=== PATIENT | male | born 1970 | race Caucasian/White ===

== ENCOUNTER 2018-04-14 18:59 | Emergency (ER) | payer OTHER ==
[2018-04-14 19:11] VITALS: BP 169/112; PULSE 78; O2SAT 97
--- NOTE | 2018-04-14 19:38 | ERPHSYRPT ---
- History of Present Illness Time Seen by Provider: 04/14/18 19:27 Source: patient Exam Limitations: no limitations Patient Subjective Stated Complaint: shoulder has hurt for past year, today at work he moved a tire and felt it pop and it has hurt ever since and isn't able to move it very well Triage Nursing Assessment: Pt stated that his shoulder has hurt for past year, today at work he moved a tire and felt it pop and it has hurt ever since and isn 't able to move it very well, denies numbness or tingling in fingers, denies any other injuries, appears to be uncomfortable Physician History: The patient is a 47-year-old male complaining of worsening right shoulder pain. His right shoulder has been hurting since last year but today while lifting a tire at work, he felt a pop and a crunching noise in his right shoulder. Now it is very painful for him to move his arm at the shoulder joint. He is unable to bring his arm straight out to his side or raise in the air without excruciating pain. His past medical history is significant for hypertension, GERD, diabetes, and depression. Occurred: this afternoon Method of Injury: other (lifting) Quality: burning, sharpness, stabbing Severity of Pain-Max: severe Severity of Pain-Current: severe Extremities Pain Location: shoulder: right Modifying Factors: Improves With: nothing Associated Symptoms: none Allergies/Adverse Reactions: codeine Allergy (Verified 04/14/18 19:11) diphenhydramine HCl [From Benadryl] Allergy (Verified 04/14/18 19:11) Home Medications: Omeprazole 40 mg DAILY 01/02/15 [History] Paroxetine HCl 30 mg DAILY 01/02/15 [History] Benazepril/Hydrochlorothiazide [Lotensin Hct 20-12.5 Tablet] 1 each PO DAILY [History] Metformin HCl 500 mg [Glucophage 500 MG] 500 mg PO BID 04/14/18 [History] Verapamil HCl Sr 240 mg [Isoptin S.r. 240 mg] 240 mg PO DAILY 04/14/18 [ History] Hx Influenza Vaccination/Date Given: No Hx Pneumococcal Vaccination/Date Given: No - Review of Systems Constitutional: No Fever, No Chills Eyes: No Symptoms Ears, Nose, & Throat: No Symptoms Respiratory: No Cough, No Dyspnea Cardiac: No Chest Pain, No Edema, No Syncope Abdominal/Gastrointestinal: No Abdominal Pain, No Nausea, No Vomiting, No Diarrhea Genitourinary Symptoms: No Dysuria Musculoskeletal: Injury, Joint Pain Skin: No Rash Neurological: No Dizziness, No Focal Weakness, No Sensory Changes Psychological: No Symptoms Endocrine: No Symptoms Hematologic/Lymphatic: No Symptoms Immunological/Allergic: No Symptoms All Other Systems: Reviewed and Negative - Past Medical History Pertinent Past Medical History: Yes Cardiac History: Hypertension, Other Respiratory History: Sleep Apnea Endocrine Medical History: Diabetes Type II GI Medical History: GERD Psycho-Social History: Depression Other Medical History: MITRAL VALVE PROLAPSE - Past Surgical History Past Surgical History: Yes Musculoskeletal: Orthopedic Surgery Other Surgical History: R WRIST, SINUS - Social History Smoking Status: Never smoker Exposure to second hand smoke: No Drug Use: none Patient Lives Alone: No - Nursing Vital Signs Nursing Vital Signs: Initial Vital Signs Temperature 98.8 F 04/14/18 19:04 Pulse Rate 78 04/14/18 19:04 Blood Pressure 169/112 04/14/18 19:04 O2 Sat by Pulse Oximetry 97 04/14/18 19:04 Pain Scale Pain Intensity 6 - Physical Exam General Appearance: alert Eyes, Ears, Nose, Throat Exam: moist mucous membranes Neck Exam: non-tender, supple Cardiovascular/Respiratory Exam: chest non-tender, normal breath sounds, regular rate/rhythm, no respiratory distress Abdominal Exam: non-tender, No guarding Back Exam: normal inspection, No vertebral tenderness Shoulder Exam: limited ROM (right shoulder pain with movement), No soft tissue tenderness Elbow/Forearm Exam: normal inspection Wrist Exam: normal inspection Hand Exam: normal inspection Neuro/Tendon Exam: normal sensation, normal motor functions Mental Status Exam: alert, oriented x 3, cooperative Skin Exam: normal color, warm, dry SpO2 Interpretation: normal SpO2: 97 Oxygen Delivery: Room Air - Radiology Exams Right Shoulder X-ray Interpretation: Interpreted by me, Negative, No Fracture, No Subluxation Ordered Tests: Active Orders 24 hr Category Date Time Status SHOULDER Stat Exams 04/14/18 19:45 Ordered Medication Summary Discontinued Medications Generic Name Dose Route Start Last Admin Trade Name Freq PRN Reason Stop Dose Admin Ketorolac Tromethamine 60 mg 04/14/18 19:39 04/14/18 19:45 Toradol 30 Mg Injection IM 04/14/18 19:40 60 mg STAT ONE Administration Ketorolac Tromethamine Confirm 04/14/18 19:42 Toradol 30 Mg Injection Administered 04/14/18 19:43 Dose 60 mg .ROUTE .STK-MED ONE - Progress Progress: improved Counseled pt/family regarding: diagnosis, need for follow-up, rad results - Departure Time of Disposition: 20:07 Departure Disposition: Home Clinical Impression: Right shoulder strain Condition: Stable Critical Care Time: No Referrals: FRANDY DUMONT [Primary Care Provider] - Additional Instructions: You have injured the soft tissues of your right shoulder. You were given Toradol 60 mg IM in the ER. Take naproxen 500 mg 2 times a day as needed. Apply ice to your shoulder for 10-15 minutes 3 or 4 times a day. You were given a work excuse for 2 days. Follow-up with your primary medical doctor in 2 -3 days. Prescriptions: Naproxen 500 mg PO BID PRN #30 tablet.
[2018-04-14] MEDS ORDERED: TORAdol 30 mg Injection IM ONE (19:39)
[2018-04-14] MEDS ORDERED: TORAdol 30 mg Injection ONE (19:42)
--- NOTE | 2018-04-15 08:57 | XRAY ---
Indication: Pain and limited range of motion. Comparison: None 3 views of the right shoulder demonstrates mild AC degenerative arthropathy. No other bony, articular, or soft tissue abnormalities.
== END 2018-04-14 20:26 | disposition home or self-care (01) ==
LOC: ED 18:59
DX: S46.911A Strain of unspecified muscle, fascia and tendon at shoulder and upper arm level, right arm, initial encounter (principal); M25.511 Pain in right shoulder; Z79.899 Other long term (current) drug therapy; X50.0XXA Overexertion from strenuous movement or load, initial encounter; Y93.89 Activity, other specified; Y92.89 Other specified places as the place of occurrence of the external cause; Y99.0 Civilian activity done for income or pay
CPT/HCPCS: 73030; 96372; 99284; J1885

== ENCOUNTER 2018-06-29 03:30 | Emergency (ER) | payer OTHER ==
[2018-06-29] MEDS ORDERED: BABY ASPIRIN 81 MG CHEW PO ONE (03:41)
[2018-06-29] MEDS ORDERED: Nitrostat 0.4 MG (ED) SL ONE (03:41)
[2018-06-29] MEDS ORDERED: Sodium Chloride 0.9% 1000 ML 1,000 ML IV SCH (03:45)
--- NOTE | 2018-06-29 03:49 | ERPHSYRPT ---
- History of Present Illness Time Seen by Provider: 06/29/18 03:38 Historian: patient, family Exam Limitations: no limitations Physician History: 47 year old male awakened with CP tonight - had neg w/u with diag MVP 8 years ago but this is different pain now has EKG st elevation inf leads - calling regional alert for potential stemi Timing/Duration: today Activities at Onset: sleep Quality: fullness, pressure Location: substernal Chest Pain Radiation: back Severity of Pain-Max: moderate Severity of Pain-Current: moderate Modifying Factors: Improves With: nitroglycerin Associated Symptoms: back pain Prior Chest Pain/Cardiac Workup: stress test Nitro Today/Relief: 0.4 mg x 1, provided by ED, mild relief Aspirin Treatment Today: 81 mg x 4, provided by ED Allergies/Adverse Reactions: codeine Allergy (Verified 04/14/18 19:11) diphenhydramine HCl [From Benadryl] Allergy (Verified 04/14/18 19:11) Home Medications: Omeprazole 40 mg DAILY 01/02/15 [History] Paroxetine HCl 30 mg DAILY 01/02/15 [History] Benazepril/Hydrochlorothiazide [Lotensin Hct 20-12.5 Tablet] 1 each PO DAILY [History] Metformin HCl 500 mg [Glucophage 500 MG] 500 mg PO BID 04/14/18 [History] Verapamil HCl Sr 240 mg [Isoptin S.r. 240 mg] 240 mg PO DAILY 04/14/18 [ History] Hx Influenza Vaccination/Date Given: No Hx Pneumococcal Vaccination/Date Given: No - Past Medical History Pertinent Past Medical History: Yes Cardiac History: Hypertension, Other Respiratory History: Sleep Apnea Endocrine Medical History: Diabetes Type II GI Medical History: GERD Psycho-Social History: Depression Other Medical History: MITRAL VALVE PROLAPSE - Past Surgical History Past Surgical History: Yes Musculoskeletal: Orthopedic Surgery Other Surgical History: R WRIST, SINUS - Social History Smoking Status: Never smoker Exposure to second hand smoke: No Drug Use: none Patient Lives Alone: No - Nursing Vital Signs Nursing Vital Signs: Initial Vital Signs Temperature 98.8 F 06/29/18 03:34 Pulse Rate 68 06/29/18 03:34 Respiratory Rate 18 06/29/18 03:34 Blood Pressure 135/93 06/29/18 03:34 O2 Sat by Pulse Oximetry 96 06/29/18 03:34 Pain Scale Pain Intensity 8 - Physical Exam General Appearance: no apparent distress, alert Eye Exam: PERRL/EOMI, eyes nml inspection Ears, Nose, Throat Exam: normal ENT inspection, moist mucous membranes Neck Exam: normal inspection, non-tender, supple, full range of motion Respiratory Exam: normal breath sounds, lungs clear, No respiratory distress Cardiovascular Exam: regular rate/rhythm, normal heart sounds Gastrointestinal/Abdomen Exam: soft, No tenderness, No mass Back Exam: normal inspection, No CVA tenderness, No vertebral tenderness Extremity Exam: normal inspection, normal range of motion Neurologic Exam: alert, oriented x 3, cooperative, normal mood/affect, sensation nml, No motor deficits Skin Exam: normal color, warm, dry - Course Nursing assessment & vital signs reviewed: Yes EKG Interpreted by Me: Sinus Rhythm, NORMAL AXIS, ST Elev, Ischemic ST-T changes - Radiology Exams Chest X-ray Interpretation: Reviewed by me, No Infiltrates Ordered Tests: Active Orders 24 hr Category Date Time Status Sorter Laundry Articles STAT Care 06/29/18 03:42 Ordered EKG-ER Only STAT Care 06/29/18 03:41 Ordered Pulse Oximetry (ED) STAT Care 06/29/18 03:41 Ordered CHEST 1 VIEW (PORTABLE) Stat Exams 06/29/18 03:42 Ordered AMYLASE Stat Lab 06/29/18 03:41 Ordered CBC W DIFF Stat Lab 06/29/18 03:41 Ordered CK-Creatinine Phosphokinase Stat Lab 06/29/18 03:41 Ordered CMP Stat Lab 06/29/18 03:41 Ordered LIPASE Stat Lab 06/29/18 03:41 Ordered NT PRO BNP Stat Lab 06/29/18 03:41 Ordered TROPONIN Q3H Lab 06/29/18 03:45 Ordered TROPONIN Q3H Lab 06/29/18 06:45 Ordered TROPONIN Q3H Lab 06/29/18 09:45 Ordered TROPONIN Q3H Lab 06/29/18 12:45 Ordered TROPONIN Q3H Lab 06/29/18 15:45 Ordered Medication Summary Generic Name Dose Route Start Last Admin Trade Name Freq PRN Reason Stop Dose Admin Sodium Chloride 1,000 mls @ 50 mls/hr 06/29/18 03:45 Sodium Chloride 0.9% 1000 Ml IV 07/29/18 03:44 .Q20H MARTIN Discontinued Medications Generic Name Dose Route Start Last Admin Trade Name Freq PRN Reason Stop Dose Admin Aspirin 324 mg 06/29/18 03:41 Baby Aspirin 81 Mg Chew PO 06/29/18 03:42 STAT ONE Nitroglycerin 0.4 mg 06/29/18 03:41 Nitrostat 0.4 Mg (Ed) SL 06/29/18 03:42 STAT ONE Prasugrel Confirm 06/29/18 03:57 Effient 10 Mg Tablet Administered 06/29/18 03:58 Dose 60 mg .ROUTE .STK-MED ONE - Progress Progress: improved, re-examined Air Movement: good Progress Note: 06/29/18 03:53 discussed with Flavia Faria [facility] ER physician and pt and all agree for transfer to [facility] Blood Culture(s) Obtained: No Antibiotics given: No Discussed with : Other ( ER ) Will see patient in: ED Counseled pt/family regarding: lab results, diagnosis, need for follow-up, rad results - Departure Time of Disposition: 04:02 Departure Disposition: Transfer Clinical Impression: STEMI (ST elevation myocardial infarction) Condition: Good Critical Care Time: Yes Critical Care Time(excluding separately billable procedures): 30-74 minutes ( stemi protocol) Referrals: FRANDY DUMONT [Primary Care Provider] -
[2018-06-29 03:55] VITALS: PULSE 68
[2018-06-29] MEDS ORDERED: Effient 10 MG TABLET ONE (03:57)
[2018-06-29 04:15] VITALS: O2SAT 98
[2018-06-29 04:18] LABS: BASOPHIL % 0.2 % (0.0-0.4); Basophil (Absolute #) 0.04 (0-0.4); Eosinophil % 0.4 % (0.00-5.0); Eosinophil (Absolute #) 0.06 (0-0.5); Granulocyte Absolute (ANC) 12.54 (1.4-6.9); Granulocytes % 74.3 % (36.0-66.0); Hematocrit 40.5 % (42-50); Hemoglobin 13.3 gm/dl (12.5-18.0); Lymphocyte (Absolute #) 1.71 (1.0-4.6); Lymphocytes % 10.1 % (24.0-44.0); Mean Corpuscular Hemoglobin 30.2 pg (26-32); Mean Corpuscular Hgb Concent. 32.8 g/dl (32-36); Mean Platelet Volume 9.1 fl (6-9.5); Monocyte (Absolute #) 2.53 (0.0-1.3); Platelet Count 276 K/mm3 (150-450); Red Cell Distribution Width 13.1 % (11.5-14.0); White Blood Count 16.9 K/mm3 (4.0-10.5)
[2018-06-29 04:27] VITALS: BP 124/82
[2018-06-29 04:55] LABS: ALBUMIN 3.8 g/dL (3.5-5.0); ALKALINE PHOSPHATASE 104 U/L (38-126); AMYLASE 33 U/L (30-110); ANION GAP 14.9 MEQ/L (5-15); BLOOD UREA NITROGEN 19 mg/dL (9-20); CHLORIDE 94 mmol/L (98-107); CK-Creatinine Phosphokinase 153 U/L (55-170); Calcium 9.1 mg/dL (8.4-10.2); Carbon Dioxide 28 mmol/L (22-30); Creatinine 1 0.95 mg/dL (0.66-1.25); Glucose 210 mg/dL (74-106); LIPASE 59 U/L (23-300); NT PRO BNP 62.3 pg/mL (0-450); SGOT/AST 23 U/L (17-59); SGPT/ALT 17 U/L (0-50); SODIUM 133 mmol/L (137-145); Total Protein 6.9 g/dL (6.3-8.2)
--- NOTE | 2018-06-29 08:26 | XRAY ---
Indication: Short of breath. Comparison: None Portable apical lordotic chest underinflated and clear. Heart and mediastinal structures within normal limits for AP portable technique. Bony thorax intact with mild degenerative changes. Impression: Nonacute underinflated chest.
[2018-06-29 09:39] LABS: Slide Review 1 YES
== END 2018-06-29 04:07 | disposition short-term general hospital (02) ==
LOC: ED 03:30
DX: I21.3 ST elevation (STEMI) myocardial infarction of unspecified site (principal); Z79.899 Other long term (current) drug therapy; E11.9 Type 2 diabetes mellitus without complications; Z79.84 Long term (current) use of oral hypoglycemic drugs
CPT/HCPCS: 36415; 71045; 80053; 82150; 82550; 83690; 83880; 84484; 85025; 93005; 93041; 99284; 99291; A9270-GY

== ENCOUNTER 2019-03-24 10:12 | Emergency (ER) | payer OTHER ==
--- NOTE | 2019-03-24 10:27 | ERPHSYRPT ---
- History of Present Illness Time Seen by Provider: 03/24/19 10:23 Source: patient Exam Limitations: no limitations Patient Subjective Stated Complaint: right wrist and hand injury from a fall at 0700 today states fell approx 4 feet off steps Triage Nursing Assessment: to er c /o right wrist and hand injury from a fall pt has swelling and bruising noted to hand and slight deformity to wrist pt able to move all digits good cap refill to all digits. denies any numbness or tingling Physician History: At work fell onto R hand with hand in flexion - began swelling immediately - sent to ER Occurred: just prior to arrival Method of Injury: fell Quality: constant, aching Severity of Pain-Max: moderate Severity of Pain-Current: moderate Extremities Pain Location: wrist: right, hand: right Modifying Factors: Improves With: nothing Associated Symptoms: none Allergies/Adverse Reactions: codeine Allergy (Verified 03/24/19 10:24) diphenhydramine HCl [From Benadryl] Allergy (Verified 03/24/19 10:24) Home Medications: Omeprazole 40 mg DAILY 01/02/15 [History] Metformin HCl 500 mg [Glucophage 500 MG] 500 mg PO BID 04/14/18 [History] Allopurinol 300 mg [Zyloprim 300 mg] 300 mg PO DAILY 03/24/19 [History] Lisinopril [Zestril] 30 mg PO DAILY 03/24/19 [History] Venlafaxine HCl [Venlafaxine HCl ER] 225 mg PO DAILY 03/24/19 [History] hydroCHLOROthiazide [Hydrochlorothiazide] 12.5 mg PO DAILY 03/24/19 [History] Hx Tetanus, Diphtheria Vaccination/Date Given: Yes (2016) Hx Influenza Vaccination/Date Given: No Hx Pneumococcal Vaccination/Date Given: No - Review of Systems Constitutional: No Symptoms Respiratory: No Symptoms Cardiac: No Symptoms Abdominal/Gastrointestinal: No Symptoms Musculoskeletal: Fall (Right hand dorsal edema/developing ecchymosis) Neurological: No Symptoms All Other Systems: Reviewed and Negative - Past Medical History Pertinent Past Medical History: Yes Cardiac History: Hypertension, Other Respiratory History: Sleep Apnea Endocrine Medical History: Diabetes Type II GI Medical History: GERD Psycho-Social History: Depression Other Medical History: MITRAL VALVE PROLAPSE - Past Surgical History Past Surgical History: Yes Musculoskeletal: Orthopedic Surgery Other Surgical History: R WRIST, SINUS - Social History Smoking Status: Never smoker Exposure to second hand smoke: No Drug Use: none Patient Lives Alone: No - Nursing Vital Signs Nursing Vital Signs: Initial Vital Signs Temperature 98.2 F 03/24/19 10:17 Pulse Rate 88 03/24/19 10:17 Respiratory Rate 18 03/24/19 10:17 Blood Pressure 134/82 03/24/19 10:17 O2 Sat by Pulse Oximetry 98 03/24/19 10:17 Pain Scale Pain Intensity 4 - Physical Exam General Appearance: mild distress, alert Neck Exam: normal inspection Cardiovascular/Respiratory Exam: chest non-tender, normal breath sounds, regular rate/rhythm, heart sounds normal Abdominal Exam: non-tender, soft Elbow/Forearm Exam: normal inspection, non-tender (bilat) Wrist Exam: normal inspection, no evidence of injury (Right) Hand Exam: normal inspection (Left; Right has notable edema and developing ecchymosis on dorsum) Neuro/Tendon Exam: normal sensation, normal motor functions Mental Status Exam: alert, oriented x 3, cooperative Skin Exam: normal color SpO2 Interpretation: normal SpO2: 98 O2 Delivery: Room Air - Course Nursing assessment & vital signs reviewed: Yes - Radiology Exams Hand X-ray Interpretation: Reviewed by me, Non-displaced Fracture (ulnar styloid R) Ordered Tests: Active Orders 24 hr Category Date Time Status Immobilizer STAT Care 03/24/19 11:15 Active Sling Application STAT Care 03/24/19 11:24 Active HAND (MINIMUM 3 VIEWS) Stat Exams 03/24/19 10:47 Completed - Progress Progress Note: 03/24/19 11:39 Educated PT re Xrays - immobilizer and sling - to follow up with primary care or orthopedics. No using R hand for lifting, pushing, pulling until cleared by primary care or orthopedics. Cold to area/hand off and on first 24 hours - elevate hand - no work today. Return to work tomorrow with the restrictions. - Departure Departure Disposition: Home Clinical Impression: Fracture of ulnar styloid Qualifiers: Encounter type: initial encounter Fracture type: closed Fracture alignment: nondisplaced Laterality: right Qualified Code(s): S52.614A - Nondisplaced fracture of right ulna styloid process, initial encounter for closed fracture Condition: Stable Critical Care Time: No Referrals: FRANDY DUMONT [Primary Care Provider] - Additional Instructions: Use immobilizer and sling - follow up with primary care or orthopedics. No using R hand for lifting, pushing, pulling until cleared by primary care or orthopedics. Cold to area/hand off and on first 24 hours - elevate hand - no work today. Return to work tomorrow with the restrictions Forms: Work/School Release Form Prescriptions: Tramadol HCl 50 mg [Ultram 50 mg] 50 mg PO Q6H PRN PRN #12 tablet PRN Reason: Pain
--- NOTE | 2019-03-24 11:00 | XRAY ---
Indication: Pain/swelling following fall. Comparison: January 02, 2015. 3 views of the right hand demonstrates new nondisplaced ulnar styloid fracture. Elsewhere old 5th metacarpal base fracture, old distal radial fracture with intact hardware, and 1st metacarpal head spur. Remaining hand unremarkable.
[2019-03-24 11:50] VITALS: BP 129/81; PULSE 69
[2019-03-24 11:51] VITALS: O2SAT 98
== END 2019-03-24 12:01 | disposition home or self-care (01) ==
LOC: ED 10:12
DX: S52.614A Nondisplaced fracture of right ulna styloid process, initial encounter for closed fracture (principal); W19.XXXA Unspecified fall, initial encounter
CPT/HCPCS: 73130; 99284; L3908

== ENCOUNTER 2019-10-17 22:19 | Emergency (ER) | payer OTHER ==
--- NOTE | 2019-10-17 23:16 | ERPHSYRPT ---
- History of Present Illness Time Seen by Provider: 10/17/19 23:13 Source: patient Exam Limitations: no limitations Patient Subjective Stated Complaint: pt c/o htn, high heart rate and headache Triage Nursing Assessment: pt c/o htn, high heart rate, and headache. Pt c/o eyes hurting. Pt hit his head Wed evening on car lift and has had a headache since then. Physician History: Pt states he his the left side of his head on a car lift at a friends residence 3 days ago with resultant headache and nausea. Generalized intermittent shakiness, decreased appetite, bilateral earaches and generalized weakness started today. Pt denies chest pain, shortness of air, fever. Allergies/Adverse Reactions: codeine Allergy (Verified 10/17/19 22:38) diphenhydramine HCl [From Benadryl] Allergy (Verified 10/17/19 22:38) Home Medications: Omeprazole 40 mg PO DAILY 01/02/15 [History] Metformin HCl 500 mg [Glucophage 500 MG] 500 mg PO BID 04/14/18 [History] Allopurinol 300 mg [Zyloprim 300 mg] 300 mg PO DAILY 03/24/19 [History] Venlafaxine HCl [Venlafaxine HCl ER] 225 mg PO DAILY 03/24/19 [History] hydroCHLOROthiazide [Hydrochlorothiazide] 12.5 mg PO DAILY 03/24/19 [History] lisinopriL [Zestril] 30 mg PO DAILY 03/24/19 [History] Hx Tetanus, Diphtheria Vaccination/Date Given: Yes Hx Influenza Vaccination/Date Given: No Hx Pneumococcal Vaccination/Date Given: No Immunizations Up to Date: Yes Travel Risk - International Travel Have you traveled outside of the country in past 3 weeks: No Have you or anyone close to you been diagnosed with or: No Do your reside in a community with a known COVID-19 case?: Yes If Yes where:: [facility] - Coronavirus Screening Has patient experienced Coronavirus symptoms: No - Review of Systems Constitutional: No Fever, No Chills Ears, Nose, & Throat: Ear Pain, No Throat Pain Respiratory: No Dyspnea Cardiac: No Chest Pain Abdominal/Gastrointestinal: Nausea, Appetite Changes (decreased today.), No Abdominal Pain, No Vomiting, No Diarrhea Neurological: Headache, Other (generalized weakness & shakiness today.) All Other Systems: Reviewed and Negative - Past Medical History Pertinent Past Medical History: Yes Neurological History: No Pertinent History ENT History: No Pertinent History Cardiac History: Hypertension, Other Respiratory History: Sleep Apnea Endocrine Medical History: Diabetes Type II Musculoskeletal History: No Pertinent History GI Medical History: GERD History: No Pertinent History Psycho-Social History: Depression Male Reproductive Disorders: No Pertinent History Other Medical History: MITRAL VALVE PROLAPSE - Past Surgical History Past Surgical History: Yes Neuro Surgical History: No Pertinent History Cardiac: Cardiac Catheterization Respiratory: No Pertinent History Gastrointestinal: No Pertinent History Genitourinary: No Pertinent History Musculoskeletal: Orthopedic Surgery Male Surgical History: No Pertinent History Other Surgical History: R WRIST, SINUS - Social History Smoking Status: Never smoker Exposure to second hand smoke: Yes Drug Use: none Patient Lives Alone: No - Nursing Vital Signs Nursing Vital Signs: Initial Vital Signs Temperature 98.3 F 10/17/19 22:31 Pulse Rate 112 H 10/17/19 22:31 Respiratory Rate 18 10/17/19 22:31 Blood Pressure 139/98 10/17/19 22:31 O2 Sat by Pulse Oximetry 95 10/17/19 22:31 Pain Scale Pain Intensity 0 - Physical Exam General Appearance: alert Eye Exam: PERRL/EOMI Ears, Nose, Throat Exam: TMs normal, pharynx normal, moist mucous membranes Neck Exam: midline tenderness (mild) Respiratory Exam: normal breath sounds Cardiovascular Exam: normal heart sounds Gastrointestinal/Abdomen Exam: soft, normal bowel sounds Back Exam: normal range of motion Extremity Exam: normal range of motion, No pedal edema Neurologic Exam: alert, cooperative, normal mood/affect, sensation nml, No motor deficits Skin Exam: warm, dry, other (mild left parietal scalp tenderness) SpO2 Interpretation: normal SpO2: 95 O2 Delivery: Room Air - Course Nursing assessment & vital signs reviewed: Yes - CT Exams Cervical Spine CT Interpretation: Tele-radiologist Report (no acute findings.) Head CT Interpretation: Tele-radiologist Report (no acute intracranial findings.) Ordered Tests: Active Orders 24 hr Category Date Time Status Cervical Collar Application STAT Care 10/18/19 03:25 Active CERVICAL SPINE WO CONTRAST [CT] Stat Exams 10/17/19 23:28 Taken HEAD WITHOUT CONTRAST [CT] Stat Exams 10/17/19 23:28 Taken UA W/RFX UR CULTURE Stat Lab 10/18/19 01:00 Completed Urine Triage Profile Stat Lab 10/18/19 01:00 Completed Medication Summary Discontinued Medications Generic Name Dose Route Start Last Admin Trade Name Kashif PRN Reason Stop Dose Admin Cyclobenzaprine HCl 10 mg 10/18/19 03:26 Cyclobenzaprine 10 Mg PO 10/18/19 03:27 STAT ONE Naproxen 500 mg 10/18/19 03:26 Naprosyn 500 Mg PO 10/18/19 03:27 STAT ONE Lab/Rad Data: Laboratory Result Diagrams 10/17/19 00:23 10/17/19 00:23 Laboratory Results 10/18/19 10/18/19 10/17/19 Range/Units 01:00 01:00 00:23 WBC (4.0-10.5) K/mm3 RBC (4.1-5.6) M/mm3 Hgb (12.5-18.0) gm/dl Hct (42-50) % MCV (78-100) fl MCH (26-32) pg MCHC (32-36) g/dl RDW (11.5-14.0) % Plt Count (150-450) K/mm3 MPV (7.5-11.0) fl Gran % (36.0-66.0) % Eos # (Auto) (0-0.5) Absolute Lymphs (auto) (1.0-4.6) Absolute Monos (auto) (0.0-1.3) Lymphocytes % (24.0-44.0) % Monocytes % (0.0-12.0) % Eosinophils % (0.00-5.0) % Basophils % (0.0-0.4) % Absolute Granulocytes (1.4-6.9) Basophils # (0-0.4) Sodium 134 L (137-145) mmol/L Potassium 3.8 (3.5-5.1) mmol/L Chloride 96 L (98-107) mmol/L Carbon Dioxide 28 (22-30) mmol/L Anion Gap 13.2 (5-15) MEQ/L BUN 15 (9-20) mg/dL Creatinine 0.67 (0.66-1.25) mg/dL Estimated GFR > 60.0 ML/MIN Glucose 251 H (74-106) mg/dL Calcium 8.8 (8.4-10.2) mg/dL Magnesium 1.6 (1.6-2.3) mg/dL Total Bilirubin 0.60 (0.2-1.3) mg/dL AST 26 (17-59) U/L ALT 25 (0-50) U/L Alkaline Phosphatase 125 (38-126) U/L Serum Total Protein 7.5 (6.3-8.2) g/dL Albumin 4.1 (3.5-5.0) g/dL Amylase 66 (30-110) U/L Lipase 98 (23-300) U/L Urine Color YELLOW (YELLOW) Urine Appearance CLEAR (CLEAR) Urine pH 5.0 (5-6) Ur Specific [place] 1.025 (1.005-1.025) Urine Protein NEGATIVE (Negative) Urine Ketones TRACE (NEGATIVE) Urine Blood NEGATIVE (0-5) William/ul Urine Nitrite NEGATIVE (NEGATIVE) Urine Bilirubin NEGATIVE (NEGATIVE) Urine Urobilinogen NEGATIVE (0-1) mg/dL Ur Leukocyte Esterase NEGATIVE (NEGATIVE) Urine WBC (Auto) NONE (0-5) /HPF U Epithel Cells (Auto) NONE (FEW) /HPF Urine Mucus (Auto) SLIGHT (NEGATIVE) /HPF Urine Culture Reflexed NO (NO) Urine Glucose >=500 (NEGATIVE) mg/dL Urine Opiates Level NEGATIVE (NEGATIVE) Ur Methadone NEGATIVE (NEGATIVE) Urine Barbiturates NEGATIVE (NEGATIVE) Ur Phencyclidine (PCP) NEGATIVE (NEGATIVE) Urine Amphetamine NEGATIVE (NEGATIVE) U Benzodiazepine Level NEGATIVE (NEGATIVE) Urine Cocaine NEGATIVE (NEGATIVE) Urine Marijuana (THC) NEGATIVE (NEGATIVE) 10/17/19 Range/Units 00:23 WBC 12.8 H (4.0-10.5) K/mm3 RBC 4.77 (4.1-5.6) M/mm3 Hgb 14.7 (12.5-18.0) gm/dl Hct 43.4 (42-50) % MCV 91.0 (78-100) fl MCH 30.8 (26-32) pg MCHC 33.9 (32-36) g/dl RDW 12.6 (11.5-14.0) % Plt Count 282 (150-450) K/mm3 MPV 9.2 (7.5-11.0) fl Gran % 83.1 H (36.0-66.0) % Eos # (Auto) 0.05 (0-0.5) Absolute Lymphs (auto) 0.97 L (1.0-4.6) Absolute Monos (auto) 1.07 (0.0-1.3) Lymphocytes % 7.6 L (24.0-44.0) % Monocytes % 8.4 (0.0-12.0) % Eosinophils % 0.4 (0.00-5.0) % Basophils % 0.5 (0.0-0.4) % Absolute Granulocytes 10.60 H (1.4-6.9) Basophils # 0.06 (0-0.4) Sodium (137-145) mmol/L Potassium (3.5-5.1) mmol/L Chloride (98-107) mmol/L Carbon Dioxide (22-30) mmol/L Anion Gap (5-15) MEQ/L BUN (9-20) mg/dL Creatinine (0.66-1.25) mg/dL Estimated GFR ML/MIN Glucose (74-106) mg/dL Calcium (8.4-10.2) mg/dL Magnesium (1.6-2.3) mg/dL Total Bilirubin (0.2-1.3) mg/dL AST (17-59) U/L ALT (0-50) U/L Alkaline Phosphatase (38-126) U/L Serum Total Protein (6.3-8.2) g/dL Albumin (3.5-5.0) g/dL Amylase (30-110) U/L Lipase (23-300) U/L Urine Color (YELLOW) Urine Appearance (CLEAR) Urine pH (5-6) Ur Specific [place] (1.005-1.025) Urine Protein (Negative) Urine Ketones (NEGATIVE) Urine Blood (0-5) William/ul Urine Nitrite (NEGATIVE) Urine Bilirubin (NEGATIVE) Urine Urobilinogen (0-1) mg/dL Ur Leukocyte Esterase (NEGATIVE) Urine WBC (Auto) (0-5) /HPF U Epithel Cells (Auto) (FEW) /HPF Urine Mucus (Auto) (NEGATIVE) /HPF Urine Culture Reflexed (NO) Urine Glucose (NEGATIVE) mg/dL Urine Opiates Level (NEGATIVE) Ur Methadone (NEGATIVE) Urine Barbiturates (NEGATIVE) Ur Phencyclidine (PCP) (NEGATIVE) Urine Amphetamine (NEGATIVE) U Benzodiazepine Level (NEGATIVE) Urine Cocaine (NEGATIVE) Urine Marijuana (THC) (NEGATIVE) - Progress Progress: unchanged Counseled pt/family regarding: lab results, rad results - Departure Departure Disposition: Home Clinical Impression: Head contusion, Cervical strain, HTN (hypertension), GERD (gastroesophageal reflux disease), Diabetes Condition: Stable Critical Care Time: No Referrals: FRANDY DUMONT [Primary Care Provider] - Instructions: Minor Head Injury Additional Instructions: Follow up with private doctor tomorrow. Prescriptions: Cyclobenzaprine HCl [Flexeril] 10 mg PO Q8H PRN PRN #30 tablet PRN Reason: Pain Naproxen 500 mg PO Q12H PRN PRN #20 tablet. PRN Reason: Pain
[2019-10-18 00:44] LABS: BASOPHIL % 0.5 % (0.0-0.4); Basophil (Absolute #) 0.06 (0-0.4); Eosinophil % 0.4 % (0.00-5.0); Eosinophil (Absolute #) 0.05 (0-0.5); Hematocrit 43.4 % (42-50); Hemoglobin 14.7 gm/dl (12.5-18.0); Lymphocyte (Absolute #) 0.97 (1.0-4.6); Lymphocytes % 7.6 % (24.0-44.0); Mean Corpuscular Hemoglobin 30.8 pg (26-32); Mean Corpuscular Hgb Concent. 33.9 g/dl (32-36); Mean Platelet Volume 9.2 fl (7.5-11.0); Monocyte (Absolute #) 1.07 (0.0-1.3); Monocytes % 8.4 % (0.0-12.0); Neutrophil % 83.1 % (36.0-66.0); Platelet Count 282 K/mm3 (150-450); Red Blood Count 4.77 M/mm3 (4.1-5.6); Red Cell Distribution Width 12.6 % (11.5-14.0); White Blood Count 12.8 K/mm3 (4.0-10.5)
[2019-10-18 01:54] LABS: Appearance CLEAR (CLEAR); Bilirubin NEGATIVE (NEGATIVE); Blood NEGATIVE Ery/ul (0-5); Glucose >=500 mg/dL (NEGATIVE); Ketones TRACE (NEGATIVE); Leukocyte Esterase NEGATIVE (NEGATIVE); Mucus SLIGHT /HPF (NEGATIVE); Nitrite NEGATIVE (NEGATIVE); Protein,Urine Dip NEGATIVE (Negative); Specific Gravity 1.025 (1.005-1.025); Urobilinogen NEGATIVE mg/dL (0-1)
[2019-10-18 02:45] LABS: ALBUMIN 4.1 g/dL (3.5-5.0); ALKALINE PHOSPHATASE 125 U/L (38-126); AMYLASE 66 U/L (30-110); ANION GAP 13.2 MEQ/L (5-15); BLOOD UREA NITROGEN 15 mg/dL (9-20); CHLORIDE 96 mmol/L (98-107); Calcium 8.8 mg/dL (8.4-10.2); Carbon Dioxide 28 mmol/L (22-30); Creatinine 1 0.67 mg/dL (0.66-1.25); Glucose 251 mg/dL (74-106); LIPASE 98 U/L (23-300); MAGNESIUM 1.6 mg/dL (1.6-2.3); Potassium 3.8 mmol/L (3.5-5.1); SGOT/AST 26 U/L (17-59); SGPT/ALT 25 U/L (0-50); SODIUM 134 mmol/L (137-145); Total Protein 7.5 g/dL (6.3-8.2)
[2019-10-18 02:55] LABS: Amphetamine,Urine NEGATIVE (NEGATIVE); Barbiturate,Urine NEGATIVE (NEGATIVE); Benzodiazepine,Urine NEGATIVE (NEGATIVE); Cocaine,Urine NEGATIVE (NEGATIVE); Methadone,Urine NEGATIVE (NEGATIVE); Opiate,Urine NEGATIVE (NEGATIVE); PCP,Urine NEGATIVE (NEGATIVE); THC,Urine NEGATIVE (NEGATIVE)
[2019-10-18 03:08] VITALS: BP 137/85
[2019-10-18] MEDS ORDERED: Naprosyn 500 MG PO ONE (03:26)
[2019-10-18] MEDS ORDERED: Cyclobenzaprine 10 MG PO ONE (03:26)
[2019-10-18] MEDS ORDERED: Cyclobenzaprine 10 MG ONE (03:34)
[2019-10-18 03:49] VITALS: PULSE 117; O2SAT 99
--- NOTE | 2019-10-18 08:08 | XRAY ---
Indication: Headache following head trauma 3 days ago. Multiple contiguous axial images obtained through the head without contrast. Comparison: None Normal appearing brain parenchyma, ventricles, and bony calvarium. There is minimal/mild mucosal thickening of the visualized paranasal sinuses bilaterally. Mastoid air cells are clear. Impression: Paranasal sinus disease. No acute intracranial abnormalities. Comment: Preliminary interpretation was made by [facility]. No critical discrepancy.
--- NOTE | 2019-10-18 08:10 | XRAY ---
Indication: Headache following head trauma 3 days ago. Multiple contiguous axial images obtained through the cervical spine. Sagittal and coronal reformatted images obtained. Comparison: None Axial images negative for acute fracture, suspicious bony lesions, or spinal canal stenosis. Sagittal and coronal reformatted images demonstrates mild cervical lordotic reversal. Vertebral body heights/disc spaces maintained. No acute compression fracture, subluxation, or jumped facet. Normal appearing craniocervical junction. Visualized noncontrasted soft tissues including lung apices are unremarkable. Impression: Cervical lordotic reversal, positional versus paraspinal spasm. Remaining CT cervical spine is negative. Comment: Preliminary interpretation was made by [facility]. No critical discrepancy.
== END 2019-10-18 03:56 | disposition home or self-care (01) ==
LOC: ED 22:19
DX: S00.93XA Contusion of unspecified part of head, initial encounter (principal); W22.8XXA Striking against or struck by other objects, initial encounter; Y93.89 Activity, other specified; Y92.89 Other specified places as the place of occurrence of the external cause; R51 Headache; I10 Essential (primary) hypertension; Z79.899 Other long term (current) drug therapy; E11.9 Type 2 diabetes mellitus without complications; K21.9 Gastro-esophageal reflux disease without esophagitis; I34.1 Nonrheumatic mitral (valve) prolapse
CPT/HCPCS: 36415; 70450; 72125; 80053; 80307; 81001; 82150; 83690; 83735; 85025; 99284; L0120; A9270-GY

== ENCOUNTER 2020-11-10 21:41 | Emergency (ER) | payer OTHER ==
--- NOTE | 2020-11-10 21:46 | ERPHSYRPT ---
- History of Present Illness Time Seen by Provider: 11/10/20 21:46 Source: patient Exam Limitations: no limitations Physician History: This is a 49-year-old white male who is diabetic and has a history of hypertension and presents 3 days after a heavy light fell on his head while working at his home. Patient states he is just felt off. He felt dizzy in the patient is light sensitive. He has not vomited. He does have mild headache. He has no chest pain he has no shortness of breath. There is no other areas of injury. Patient states that his codeine "allergy" is makes him sick to his stomach. Patient states that he has had hydrocodone in the past without any problems. Timing/Duration: day(s) (3) Severity: moderate Modifying Factors: Improves With: other (Right sensitivity) Associated Symptoms: headaches Allergies/Adverse Reactions: codeine Allergy (Intermediate, Verified 11/10/20 22:14) Vomiting diphenhydramine HCl [From Benadryl] Adverse Reaction (Intermediate, Verified 11/10/20 22:14) Home Medications: Omeprazole 40 mg PO DAILY 01/02/15 [History] Metformin HCl 500 mg [Glucophage 500 MG] 1,000 mg PO BID 04/14/18 [History] Allopurinol 300 mg [Zyloprim 300 mg] 300 mg PO DAILY 03/24/19 [History] Venlafaxine HCl [Venlafaxine HCl ER] 225 mg PO DAILY 03/24/19 [History] hydroCHLOROthiazide [Hydrochlorothiazide] 12.5 mg PO DAILY 03/24/19 [History] lisinopriL [Zestril] 5 mg PO DAILY 03/24/19 [History] Metoprolol Succinate 50 mg [Toprol Xl 50 MG] 50 mg PO DAILY 11/10/20 [ History] Sitagliptin Phosphate [Januvia] 100 mg PO DAILY 11/10/20 [History] Hx Tetanus, Diphtheria Vaccination/Date Given: Yes Hx Influenza Vaccination/Date Given: No Hx Pneumococcal Vaccination/Date Given: No Travel Risk - International Travel Have you traveled outside of the country in past 3 weeks: No - Coronavirus Screening Are you exhibiting any of the following symptoms?: No Close contact with a COVID-19 positive Pt in past 14-21 Days: No - Vaccine Status Have you recieved a Covid-19 vaccination: No - Review of Systems Constitutional: No Symptoms Eyes: No Symptoms Ears, Nose, & Throat: No Symptoms Respiratory: No Symptoms Cardiac: No Symptoms Abdominal/Gastrointestinal: No Symptoms Genitourinary Symptoms: No Symptoms Musculoskeletal: No Symptoms Skin: No Symptoms Neurological: Headache Psychological: No Symptoms Endocrine: No Symptoms Hematologic/Lymphatic: No Symptoms Immunological/Allergic: No Symptoms All Other Systems: Reviewed and Negative - Past Medical History Pertinent Past Medical History: Yes Neurological History: No Pertinent History ENT History: No Pertinent History Cardiac History: Hypertension, Other Respiratory History: Sleep Apnea Endocrine Medical History: Diabetes Type II Musculoskeletal History: No Pertinent History GI Medical History: GERD History: No Pertinent History Psycho-Social History: Depression Male Reproductive Disorders: No Pertinent History Other Medical History: MITRAL VALVE PROLAPSE - Past Surgical History Past Surgical History: Yes Neuro Surgical History: No Pertinent History Cardiac: Cardiac Catheterization Respiratory: No Pertinent History Gastrointestinal: No Pertinent History Genitourinary: No Pertinent History Musculoskeletal: Orthopedic Surgery Male Surgical History: No Pertinent History Other Surgical History: R WRIST, SINUS - Social History Smoking Status: Never smoker Exposure to second hand smoke: Yes Drug Use: none Patient Lives Alone: No - Nursing Vital Signs Nursing Vital Signs: Initial Vital Signs Temperature 97.8 F 11/10/20 22:02 Respiratory Rate 18 11/10/20 22:02 Blood Pressure 158/96 11/10/20 22:02 O2 Sat by Pulse Oximetry 97 11/10/20 22:02 Pain Scale Pain Intensity 7 - Physical Exam General Appearance: mild distress, alert, anxiety, obese Eye Exam: PERRL/EOMI, eyes nml inspection Ears, Nose, Throat Exam: normal ENT inspection, moist mucous membranes Neck Exam: normal inspection, non-tender, supple, full range of motion Respiratory Exam: normal breath sounds, lungs clear, No respiratory distress, No airway intact Cardiovascular Exam: regular rate/rhythm, normal heart sounds, normal peripheral pulses Gastrointestinal/Abdomen Exam: soft, normal bowel sounds, No tenderness Rectal Exam: not done Back Exam: normal inspection, normal range of motion, CVA tenderness Extremity Exam: normal inspection, normal range of motion, pelvis stable Neurologic Exam: alert, oriented x 3, cooperative, provider network mgr II-XII nml as tested, normal mood/affect, nml cerebellar function, nml station & gait, sensation nml Skin Exam: normal color, warm, dry Lymphatic Exam: No adenopathy SpO2 Interpretation: normal O2 Delivery: Room Air - Course Nursing assessment & vital signs reviewed: Yes Ordered Tests: Active Orders 24 hr Category Date Time Status HEAD WITHOUT CONTRAST [CT] Stat Exams 11/10/20 22:23 Taken Medication Summary Generic Name Dose Route Start Last Admin Trade Name Kashif PRN Reason Stop Dose Admin Ondansetron HCl 4 mg 11/10/20 23:31 Zofran Odt 4 Mg PO 11/10/20 23:32 STAT ONE Discontinued Medications Generic Name Dose Route Start Last Admin Trade Name Freq PRN Reason Stop Dose Admin Hydrocodone Bitart/Acetaminophen 1 tab 11/10/20 23:30 [place] 5/325 Mg PO 11/10/20 23:31 STAT ONE - Progress Progress: improved, pain not gone completely, re-examined Progress Note: 11/10/20 23:34 CAT scan of the head is negative for intracranial hemorrhage or mass-effect. Counseled pt/family regarding: diagnosis, need for follow-up, rad results - Departure Departure Disposition: Home Clinical Impression: Head injury, Postconcussion syndrome Condition: Stable Critical Care Time: No Referrals: FRANDY DUMONT [NON-STAFF PHY W/O PRIVILEGES] - Additional Instructions: Drink plenty of fluids. Rest often during the weekend. Avoid excessive activity over the weekend. Use Tylenol and ibuprofen for pain control. Follow- up with your doctor's office tomorrow to make arrangements for follow-up appointment for next week. Forms: Work/School Release Form
[2020-11-10] MEDS ORDERED: NORCO 5/325 MG PO ONE (23:30)
[2020-11-10] MEDS ORDERED: ZOFRAN ODT 4 MG PO ONE (23:31)
[2020-11-10] MEDS ORDERED: ZOFRAN ODT 4 MG ONE (23:37)
[2020-11-10] MEDS ORDERED: NORCO 5/325 MG ONE (23:37)
[2020-11-11 00:06] VITALS: BP 169/89; PULSE 63; O2SAT 99
--- NOTE | 2020-11-11 09:04 | XRAY ---
Indication: Pain following head injury 4 days ago. Multiple contiguous axial images obtained through the head without contrast. Comparison: October 17, 2019. Normal appearing brain parenchyma, ventricles, and bony calvarium. Visualized paranasal sinuses and mastoid air cells are clear. Impression: Continued normal CT head without contrast exam. Comment: Preliminary interpretation was made by [facility]. No critical discrepancy.
== END 2020-11-11 00:03 | disposition home or self-care (01) ==
LOC: ED 21:41
DX: S09.90XA Unspecified injury of head, initial encounter (principal); W22.8XXA Striking against or struck by other objects, initial encounter; Y93.9 Activity, unspecified; Y92.89 Other specified places as the place of occurrence of the external cause; I10 Essential (primary) hypertension; Z79.4 Long term (current) use of insulin; Z79.899 Other long term (current) drug therapy; F07.81 Postconcussional syndrome
CPT/HCPCS: 70450; 99283; Q0162; A9270-GY

== ENCOUNTER 2021-11-02 08:23 | Observation (INO) | payer OTHER ==
--- NOTE | 2021-11-02 09:17 | ERPHSYRPT ---
- History of Present Illness Time Seen by Provider: 11/02/21 08:55 Source: patient Exam Limitations: no limitations Patient Subjective Stated Complaint: dizziness intermittently x 3 days, been dizzy ever since waking up this morning Triage Nursing Assessment: . Physician History: Patient is a 50-year-old male presents to our ED with complaints of dizziness. Dizziness started 3 days ago. Dizziness was initially intermittent but now is constant. Patient is experiencing dizziness at rest and while had in static position. Dizziness is worse however with head movement. Patient also complains of generalized weakness and muscle twitching. Patient has been experiencing a headache and nausea since the onset of his dizziness. No trauma. No fever. No vomiting. No diarrhea. No rash. Symptoms are progressive. S ymptoms are moderate in intensity. No specific worsening improving factors. Patient is a diabetic. patient voices no other complaints or concerns at this time. Timing/Duration: day(s) Severity: moderate (3 days) Character of Deficits: other (Dizziness generalized weakness, muscle twitching) Deficits: no difficulties Baseline/Normal Cognition: alert oriented x 3 Current Cognition: alert oriented x 3 Baseline Gait: walks w/o assistance Associated Symptoms: weakness (Generalized weakness, muscle twitching) Allergies/Adverse Reactions: codeine Allergy (Intermediate, Verified 11/02/21 08:56) Vomiting diphenhydramine HCl [From Benadryl] Adverse Reaction (Intermediate, Verified 11/02/21 08:56) Home Medications: Omeprazole 40 mg PO DAILY 01/02/15 [History] Metformin HCl 500 mg [Glucophage 500 MG] 1,000 mg PO BID 04/14/18 [Hist ory] Allopurinol 300 mg [Zyloprim 300 mg] 300 mg PO DAILY 03/24/19 [History] Venlafaxine HCl [Venlafaxine HCl ER] 225 mg PO DAILY 03/24/19 [History] hydroCHLOROthiazide [Hydrochlorothiazide] 12.5 mg PO DAILY 03/24/19 [History] lisinopriL [Zestril] 5 mg PO DAILY 03/24/19 [History] Metoprolol Succinate 50 mg [Toprol Xl 50 MG] 50 mg PO DAILY 11/10/20 [History] Dulaglutide [Trulicity] 3 mg IM WEEKLY 11/02/21 [History] Hx Tetanus, Diphtheria Vaccination/Date Given: Yes Hx Influenza Vaccination/Date Given: No Hx Pneumococcal Vaccination/Date Given: No Travel Risk - International Travel Have you traveled outside of the country in past 3 weeks: No - Coronavirus Screening Are you exhibiting any of the following symptoms?: No Close contact with a COVID-19 positive Pt in past 14-21 Days: No - Vaccine Status Have you recieved a Covid-19 vaccination: No - Review of Systems Constitutional: No Symptoms, No Fever, No Chills Eyes: No Symptoms Ears, Nose, & Throat: No Symptoms Respiratory: No Symptoms, No Cough, No Dyspnea Cardiac: No Symptoms, No Chest Pain, No Edema, No Syncope Abdominal/Gastrointestinal: No Symptoms, No Abdominal Pain, No Nausea, No Vomiting, No Diarrhea Genitourinary Symptoms: No Symptoms, No Dysuria Musculoskeletal: No Symptoms, No Back Pain, No Neck Pain Skin: No Symptoms, No Rash Neurological: No Symptoms, No Dizziness, No Focal Weakness, No Sensory Changes Psychological: No Symptoms Endocrine: No Symptoms Hematologic/Lymphatic: No Symptoms Immunological/Allergic: No Symptoms All Other Systems: Reviewed and Negative - Past Medical History Pertinent Past Medical History: Yes Neurological History: No Pertinent History ENT History: No Pertinent History Cardiac History: Hypertension, Other Respiratory History: Sleep Apnea Endocrine Medical History: Diabetes Type II Musculoskeletal History: No Pertinent History GI Medical History: GERD History: No Pertinent History Psycho-Social History: Depression Male Reproductive Disorders: No Pertinent History Other Medical History: MITRAL VALVE PROLAPSE - Past Surgical History Past Surgical History: Yes Neuro Surgical History: No Pertinent History Cardiac: Cardiac Catheterization Respiratory: No Pertinent History Gastrointestinal: No Pertinent History Genitourinary: No Pertinent History Musculoskeletal: Orthopedic Surgery Male Surgical History: No Pertinent History Other Surgical History: R WRIST, SINUS - Social History Smoking Status: Never smoker Exposure to second hand smoke: No Drug Use: none Patient Lives Alone: No - Nursing Vital Signs Nursing Vital Signs: Initial Vital Signs Temperature 97.6 F 11/02/21 08:50 Pulse Rate 78 11/02/21 08:50 Respiratory Rate 16 11/02/21 08:50 O2 Sat by Pulse Oximetry 99 11/02/21 08:50 Pain Scale Pain Intensity 6 - Ewelina Coma Scale Best Eye Response (Ewelina): (4) open spontaneously Best Verbal Response (Jane Lew): (5) oriented Best Motor Response (Ewelina): (6) obeys commands Jane Lew Total: 15 - Physical Exam General Appearance: no apparent distress, alert Eye Exam: bilateral eye: normal inspection, PERRL, EOMI Ears, Nose, Throat Exam: normal ENT inspection, TMs normal, pharynx normal, moist mucous membranes Neck Exam: normal inspection, non-tender, supple, full range of motion Respiratory: normal breath sounds, lungs clear, airway intact, No chest tenderness, No respiratory distress, No diminished breath sounds Cardiovascular: regular rate/rhythm, normal heart sounds, normal peripheral pulses, No edema Gastrointestinal: soft, normal bowel sounds, No tenderness, No distention, No guarding Back Exam: normal inspection Extremity Exam: normal inspection, normal range of motion, pelvis stable, No amputations, No pedal edema Peripheral Pulses: dorsalis-pedis (R): 2+, dorsalis-pedis (L): 2+ Mental Status: alert, oriented x 3, 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 However no focal weakness observed on exam), No sensory deficit Skin Exam: normal color, warm, dry, No rash SpO2 Interpretation: normal SpO2: 99 O2 Delivery: Room Air - Course Nursing assessment & vital signs reviewed: Yes EKG Interpreted by Me: RATE (66), Sinus Rhythm, NORMAL AXIS, NORMAL INTERVALS - Radiology Exams Chest X-ray Interpretation: Teleradiologist Report (Normal heart lungs bony thorax. Mild degenerative changes) - CT Exams Head CT Interpretation: Tele-radiologist Report (Normal CT head without contrast exam.) Other CT Interpretation: Tele-radiologist Report (Normal CTA brain without contrast) Soft Tissue Neck CT Interpretation: Tele-radiologist Report (Normal CT neck without contrast ) Ordered Tests: Active Orders 24 hr Category Date Time Status Supervisor Shearing STAT Care 11/02/21 09:07 Active EKG-ER Only STAT Care 11/02/21 09:06 Active IV Insertion STAT Care 11/02/21 09:06 Active Pulse Oximetry (ED) STAT Care 11/02/21 09:06 Active Tele-Health Consult ROUTINE Cons 11/02/21 09:20 Active CHEST 1 VIEW (PORTABLE) Stat Exams 11/02/21 09:[address] ANGIOGRAPHY NECK [CT] Stat Exams 11/02/21 09:50 Completed CTA HEAD W AND/OR WO CONTRAST [CT] Stat Exams 11/02/21 09:50 Completed HEAD WITHOUT CONTRAST [CT] Stat Exams 11/02/21 09:02 Completed CBC W DIFF Stat Lab 11/02/21 09:02 Completed CMP Stat Lab 11/02/21 09:02 Completed ETHYL ALCOHOL Stat Lab 11/02/21 09:02 Completed MAGNESIUM Stat Lab 11/02/21 09:02 Completed NT PRO BNP Stat Lab 11/02/21 09:02 Completed POCT GLUCOSE Stat Lab 11/02/21 09:01 Completed TROPONIN Q3H Lab 11/02/21 09:02 Completed TROPONIN Q3H Lab 11/02/21 12:15 Ordered TROPONIN Q3H Lab 11/02/21 15:15 Ordered TROPONIN Q3H Lab 11/02/21 18:15 Ordered TROPONIN Q3H Lab 11/02/21 21:15 Ordered Urine Triage Profile Stat Lab 11/02/21 09:27 Completed Transfer Order Routine Transfer 11/02/21 Ordered Medication Summary Generic Name Dose Route Start Last Admin Trade Name Freq PRN Reason Stop Dose Admin Sodium Chloride 1,000 mls @ 100 mls/hr 11/02/21 09:45 11/02/21 10:00 Sodium Chloride 0.9% 1000 Ml IV 12/02/21 09:44 100 mls/hr .Q10H MARTIN Administration Discontinued Medications Generic Name Dose Route Start Last Admin Trade Name Freq PRN Reason Stop Dose Admin Aspirin 324 mg 11/02/21 09:58 11/02/21 10:06 Aspirin 81 Mg Tab.Chew PO 11/02/21 09:59 324 mg STAT ONE Administration Aspirin Confirm 11/02/21 10:06 Aspirin 81 Mg Tab.Chew Administered 11/02/21 10:07 Dose 324 mg .ROUTE .STK-MED ONE Ketorolac Tromethamine 30 mg 11/02/21 09:57 11/02/21 10:03 Ketorolac Tromethamine 30 Mg/Ml Inj IV 11/02/21 09:58 30 mg STAT ONE Administration Ketorolac Tromethamine Confirm 11/02/21 09:59 Ketorolac Tromethamine 30 Mg/Ml Inj Administered 11/02/21 10:00 Dose 30 mg .ROUTE .STK-MED ONE Ondansetron HCl 4 mg 11/02/21 09:57 11/02/21 10:02 Ondansetron Hcl 4 Mg/2 Ml Vial IV 11/02/21 09:58 4 mg STAT ONE Administration Ondansetron HCl Confirm 11/02/21 09:59 Ondansetron Hcl 4 Mg/2 Ml Vial Administered 11/02/21 10:00 Dose 4 mg .ROUTE .STK-MED ONE Lab/Rad Data: Laboratory Result Diagrams 11/02/21 09:02 11/02/21 09:02 Laboratory Results 11/02/21 11/02/21 11/02/21 Range/Units 10:18 09:27 09:27 WBC (4.0-10.5) K/mm3 RBC (4.1-5.6) M/mm3 Hgb (12.5-18.0) gm/dl Hct (42-50) % MCV (78-100) fl MCH (26-32) pg MCHC (32-36) g/dl RDW (11.5-14.0) % Plt Count (150-450) K/mm3 MPV (7.5-11.0) fl Gran % (36.0-66.0) % Eos # (Auto) (0-0.5) Absolute Lymphs (auto) (1.0-4.6) Absolute Monos (auto) (0.0-1.3) Lymphocytes % (24.0-44.0) % Monocytes % (0.0-12.0) % Eosinophils % (0.00-5.0) % Basophils % (0.0-0.4) % Absolute Granulocytes (1.4-6.9) Basophils # (0-0.4) Sodium (137-145) mmol/L Potassium (3.5-5.1) mmol/L Chloride (98-107) mmol/L Carbon Dioxide (22-30) mmol/L Anion Gap (5-15) MEQ/L BUN (9-20) mg/dL Creatinine (0.66-1.25) mg/dL Estimated GFR ML/MIN Glucose (74-106) mg/dL POC Glucometer (74 to 106) mg/dL Calcium (8.4-10.2) mg/dL Magnesium (1.6-2.3) mg/dL Total Bilirubin (0.2-1.3) mg/dL AST (17-59) U/L ALT (0-50) U/L Alkaline Phosphatase (38-126) U/L Troponin I (0.000-0.034) ng/mL NT-Pro-B Natriuret Pep (0-450) pg/mL Serum Total Protein (6.3-8.2) g/dL Albumin (3.5-5.0) g/dL Urinalys Dipstick Clnc Pending Urine Color YELLOW (YELLOW) Urine Appearance CLEAR (CLEAR) Urine pH 6.0 (5-6) Ur Specific [place] 1.025 (1.005-1.025) POC Urine Protein Conf NEGATIVE (Negative) Urine Ketones NEGATIVE (NEGATIVE) Urine Nitrite NEGATIVE (NEGATIVE) Urine Bilirubin NEGATIVE (NEGATIVE) Urine Urobilinogen 0.2 (0-1) mg/dL Urine Leukocytes NEGATIVE (NEGATIVE) Urine WBC (Auto) NONE (0-5) /HPF Urine RBC NEGATIVE (0-5) William/ul Urine Mucus (Auto) SLIGHT (NEGATIVE) /HPF Ur Culture Indicated? NO Urine Glucose NEGATIVE (NEGATIVE) mg/dL Urine Opiates Level NEGATIVE (NEGATIVE) Ur Methadone NEGATIVE (NEGATIVE) Urine Barbiturates NEGATIVE (NEGATIVE) Ur Phencyclidine (PCP) NEGATIVE (NEGATIVE) Urine Amphetamine NEGATIVE (NEGATIVE) U Benzodiazepine Level NEGATIVE (NEGATIVE) Urine Cocaine NEGATIVE (NEGATIVE) Urine Marijuana (THC) NEGATIVE (NEGATIVE) Ethyl Alcohol (0-10) mg/dL Influenza Type A Ag NEGATIVE (NEGATIVE) Influenza Type B Ag NEGATIVE (NEGATIVE) RSV (PCR) NEGATIVE (Negative) SARS-CoV-2 (PCR) NEGATIVE (NEGATIVE) 11/02/21 11/02/21 11/02/21 Range/Units 09:02 09:02 09:02 WBC 6.7 (4.0-10.5) K/mm3 RBC 5.16 (4.1-5.6) M/mm3 Hgb 15.4 (12.5-18.0) gm/dl Hct 47.4 (42-50) % MCV 91.9 (78-100) fl MCH 29.8 (26-32) pg MCHC 32.5 (32-36) g/dl RDW 13.4 (11.5-14.0) % Plt Count 329 (150-450) K/mm3 MPV 9.0 (7.5-11.0) fl Gran % 63.7 (36.0-66.0) % Eos # (Auto) 0.09 (0-0.5) Absolute Lymphs (auto) 1.63 (1.0-4.6) Absolute Monos (auto) 0.68 (0.0-1.3) Lymphocytes % 24.4 (24.0-44.0) % Monocytes % 10.2 (0.0-12.0) % Eosinophils % 1.3 (0.00-5.0) % Basophils % 0.4 (0.0-0.4) % Absolute Granulocytes 4.24 (1.4-6.9) Basophils # 0.03 (0-0.4) Sodium 138 (137-145) mmol/L Potassium 5.0 (3.5-5.1) mmol/L Chloride 99 (98-107) mmol/L Carbon Dioxide 30 (22-30) mmol/L Anion Gap 13.8 (5-15) MEQ/L BUN 17 (9-20) mg/dL Creatinine 0.75 (0.66-1.25) mg/dL Estimated GFR > 60.0 ML/MIN Glucose 193 H (74-106) mg/dL POC Glucometer (74 to 106) mg/dL Calcium 9.6 (8.4-10.2) mg/dL Magnesium 1.9 (1.6-2.3) mg/dL Total Bilirubin 0.60 (0.2-1.3) mg/dL AST 23 (17-59) U/L ALT 29 (0-50) U/L Alkaline Phosphatase 92 (38-126) U/L Troponin I < 0.012 (0.000-0.034) ng/mL NT-Pro-B Natriuret Pep 12.0 (0-450) pg/mL Serum Total Protein 7.5 (6.3-8.2) g/dL Albumin 4.3 (3.5-5.0) g/dL Urinalys Dipstick Clnc Urine Color (YELLOW) Urine Appearance (CLEAR) Urine pH (5-6) Ur Specific [place] (1.005-1.025) POC Urine Protein Conf (Negative) Urine Ketones (NEGATIVE) Urine Nitrite (NEGATIVE) Urine Bilirubin (NEGATIVE) Urine Urobilinogen (0-1) mg/dL Urine Leukocytes (NEGATIVE) Urine WBC (Auto) (0-5) /HPF Urine RBC (0-5) William/ul Urine Mucus (Auto) (NEGATIVE) /HPF Ur Culture Indicated? Urine Glucose (NEGATIVE) mg/dL Urine Opiates Level (NEGATIVE) Ur Methadone (NEGATIVE) Urine Barbiturates (NEGATIVE) Ur Phencyclidine (PCP) (NEGATIVE) Urine Amphetamine (NEGATIVE) U Benzodiazepine Level (NEGATIVE) Urine Cocaine (NEGATIVE) Urine Marijuana (THC) (NEGATIVE) Ethyl Alcohol < 10 (0-10) mg/dL Influenza Type A Ag (NEGATIVE) Influenza Type B Ag (NEGATIVE) RSV (PCR) (Negative) SARS-CoV-2 (PCR) (NEGATIVE) 11/02/21 Range/Units 09:01 WBC (4.0-10.5) K/mm3 RBC (4.1-5.6) M/mm3 Hgb (12.5-18.0) gm/dl Hct (42-50) % MCV (78-100) fl MCH (26-32) pg MCHC (32-36) g/dl RDW (11.5-14.0) % Plt Count (150-450) K/mm3 MPV (7.5-11.0) fl Gran % (36.0-66.0) % Eos # (Auto) (0-0.5) Absolute Lymphs (auto) (1.0-4.6) Absolute Monos (auto) (0.0-1.3) Lymphocytes % (24.0-44.0) % Monocytes % (0.0-12.0) % Eosinophils % (0.00-5.0) % Basophils % (0.0-0.4) % Absolute Granulocytes (1.4-6.9) Basophils # (0-0.4) Sodium (137-145) mmol/L Potassium (3.5-5.1) mmol/L Chloride (98-107) mmol/L Carbon Dioxide (22-30) mmol/L Anion Gap (5-15) MEQ/L BUN (9-20) mg/dL Creatinine (0.66-1.25) mg/dL Estimated GFR ML/MIN Glucose (74-106) mg/dL POC Glucometer 198 H (74 to 106) mg/dL Calcium (8.4-10.2) mg/dL Magnesium (1.6-2.3) mg/dL Total Bilirubin (0.2-1.3) mg/dL AST (17-59) U/L ALT (0-50) U/L Alkaline Phosphatase (38-126) U/L Troponin I (0.000-0.034) ng/mL NT-Pro-B Natriuret Pep (0-450) pg/mL Serum Total Protein (6.3-8.2) g/dL Albumin (3.5-5.0) g/dL Urinalys Dipstick Clnc Urine Color (YELLOW) Urine Appearance (CLEAR) Urine pH (5-6) Ur Specific [place] (1.005-1.025) POC Urine Protein Conf (Negative) Urine Ketones (NEGATIVE) Urine Nitrite (NEGATIVE) Urine Bilirubin (NEGATIVE) Urine Urobilinogen (0-1) mg/dL Urine Leukocytes (NEGATIVE) Urine WBC (Auto) (0-5) /HPF Urine RBC (0-5) William/ul Urine Mucus (Auto) (NEGATIVE) /HPF Ur Culture Indicated? Urine Glucose (NEGATIVE) mg/dL Urine Opiates Level (NEGATIVE) Ur Methadone (NEGATIVE) Urine Barbiturates (NEGATIVE) Ur Phencyclidine (PCP) (NEGATIVE) Urine Amphetamine (NEGATIVE) U Benzodiazepine Level (NEGATIVE) Urine Cocaine (NEGATIVE) Urine Marijuana (THC) (NEGATIVE) Ethyl Alcohol (0-10) mg/dL Influenza Type A Ag (NEGATIVE) Influenza Type B Ag (NEGATIVE) RSV (PCR) (Negative) SARS-CoV-2 (PCR) (NEGATIVE) - Progress Progress: improved Progress Note: Case discussed with Dr. Warren teleneurologist who advises admission for MRI. Dr. Warren also requests CT a head and neck. Patient unable to have meclizine due to allergy to diphenhydramine. 11/02/21 09:[address] Haywood accepts admission to observation. Covid test pending 11/02/21 10:17 CTA head neck are both negative. 11/02/21 11:36 Admit orders entered. Patient agrees to admission at [facility] for further evaluation and treatment. Portions of this note were created with voice recognition technology. There may be grammatical, spelling, punctuation or sound alike errors 11/02/21 11:42 Discussed with : Kristan Will see patient in: hospital (observation) Counseled pt/family regarding: lab results, diagnosis, rad results - Departure Departure Disposition: Observation Clinical Impression: Dizziness, Nausea Condition: Stable Critical Care Time: No Referrals: DOCTOR,NO FAMILY [NON-STAFF PHY W/O PRIVILEGES] - Follow up/PCP as directed
--- NOTE | 2021-11-02 09:21 | XRAY ---
Indication: Stroke. Comparison: June 29, 2018. Portable chest again demonstrates normal heart and lungs. Bony thorax intact with mild degenerative changes. No new/acute findings.
--- NOTE | 2021-11-02 09:21 | XRAY ---
Indication: Headache, weakness, and nausea. Stroke. Multiple contiguous axial images obtained through the head without contrast. Comparison: November 10, 2020. Normal appearing brain parenchyma, ventricles, and bony calvarium. Visualized paranasal sinuses and mastoid air cells are clear. Impression: Continued normal CT head without contrast exam.
[2021-11-02 09:39] LABS: Absolute Neutrophil Ct (ANC) 4.24 (1.4-6.9); Basophil (Absolute #) 0.03 (0-0.4); Eosinophil % 1.3 % (0.00-5.0); Eosinophil (Absolute #) 0.09 (0-0.5); Hematocrit 47.4 % (42-50); Hemoglobin 15.4 gm/dl (12.5-18.0); Lymphocyte (Absolute #) 1.63 (1.0-4.6); Lymphocytes % 24.4 % (24.0-44.0); Mean Cell Volume 91.9 fl (78-100); Mean Corpuscular Hemoglobin 29.8 pg (26-32); Mean Corpuscular Hgb Concent. 32.5 g/dl (32-36); Monocyte (Absolute #) 0.68 (0.0-1.3); Monocytes % 10.2 % (0.0-12.0); Neutrophil % 63.7 % (36.0-66.0); Platelet Count 329 K/mm3 (150-450); Red Blood Count 5.16 M/mm3 (4.1-5.6); Red Cell Distribution Width 13.4 % (11.5-14.0); White Blood Count 6.7 K/mm3 (4.0-10.5)
[2021-11-02 09:42] LABS: ALBUMIN 4.3 g/dL (3.5-5.0); ALKALINE PHOSPHATASE 92 U/L (38-126); ANION GAP 13.8 MEQ/L (5-15); BLOOD UREA NITROGEN 17 mg/dL (9-20); CHLORIDE 99 mmol/L (98-107); Calcium 9.6 mg/dL (8.4-10.2); Carbon Dioxide 30 mmol/L (22-30); Creatinine 1 0.75 mg/dL (0.66-1.25); EST GLOMERULAR FILTRATION RATE > 60.0 ML/MIN; ETHYL ALCOHOL < 10 mg/dL (0-10); Glucose 193 mg/dL (74-106); MAGNESIUM 1.9 mg/dL (1.6-2.3); SGOT/AST 23 U/L (17-59); SGPT/ALT 29 U/L (0-50); SODIUM 138 mmol/L (137-145); Total Protein 7.5 g/dL (6.3-8.2)
[2021-11-02] MEDS ORDERED: Sodium Chloride 0.9% 1000 ML 1,000 ML IV SCH (09:45)
[2021-11-02] MEDS ORDERED: Zofran 4 MG/2 ML VIAL IV ONE (09:57)
[2021-11-02] MEDS ORDERED: TORAdol 30 mg Injection IV ONE (09:57)
[2021-11-02] MEDS ORDERED: BABY ASPIRIN 81 MG CHEW PO ONE (09:58)
[2021-11-02] MEDS ORDERED: Sodium Chloride 0.9% 1000 ML 1,000 ML ONE (09:58)
[2021-11-02] MEDS ORDERED: Zofran 4 MG/2 ML VIAL ONE (09:59)
[2021-11-02] MEDS ORDERED: TORAdol 30 mg Injection ONE (09:59)
[2021-11-02] MEDS ORDERED: BABY ASPIRIN 81 MG CHEW ONE (10:06)
[2021-11-02 10:31] LABS: Mucus SLIGHT /HPF (NEGATIVE)
[2021-11-02 10:44] LABS: Amphetamine,Urine NEGATIVE (NEGATIVE); Barbiturate,Urine NEGATIVE (NEGATIVE); Benzodiazepine,Urine NEGATIVE (NEGATIVE); Cocaine,Urine NEGATIVE (NEGATIVE); Methadone,Urine NEGATIVE (NEGATIVE); Opiate,Urine NEGATIVE (NEGATIVE); PCP,Urine NEGATIVE (NEGATIVE); THC,Urine NEGATIVE (NEGATIVE)
--- NOTE | 2021-11-02 10:57 | XRAY ---
Indication: Weakness, headache, nausea. Conventional contrast enhanced CTA head performed using 100 cc Isovue 370 contrast. Two-dimensional sagittal and coronal reformatted images obtained. Additional 3-dimensional reformatted images obtained using a separate workstation. Comparison: None Distal internal carotid arteries are bilaterally symmetric without critical stenosis, obstruction, or AV malformation. Normal carotid terminus with normal branching A1 and M1 segments bilaterally. More distal anterior cerebral and middle cerebral arteries are normal in CTA appearance bilaterally. Posterior circulation demonstrates normal CTA appearance to the distal left/right vertebral, basilar, left/right posterior cerebral, and left/right superior cerebral arteries. Venous drainage/sinuses are unremarkable. No abnormal enhancing intra-or extra-axial mass. Impression: Normal CTA brain with contrast exam.
--- NOTE | 2021-11-02 10:59 | XRAY ---
Indication: Weakness, headache, nausea. Conventional contrast enhanced CTA neck performed using 100 cc Isovue 370 contrast. Two-dimensional sagittal and coronal reformatted images obtained. Additional 3-dimensional reformatted images obtained using a separate workstation. Comparison: None Normal CTA appearance to the common carotid, carotid bulb, internal carotid, external carotid, and vertebral arteries bilaterally. Visualized soft tissues demonstrates a few centimeter/subcentimeter cervical and submandibular lymph nodes. No pathologic lymphadenopathy. Thyroid gland enhances homogeneously. Supra and infraglottic airway widely patent. Osseous structures including cervical spine intact. Lung apices are clear. Impression: Normal CTA neck with contrast exam.
[2021-11-02 11:06] LABS: Appearance CLEAR (CLEAR); Bilirubin NEGATIVE (NEGATIVE); Glucose NEGATIVE (NEGATIVE); Ketones NEGATIVE (NEGATIVE); RBC NEGATIVE Ery/ul (0-5); Specific Gravity 1.025 (1.005-1.025)
[2021-11-02 11:07] LABS: Nitrite NEGATIVE (NEGATIVE); Protein,Urine Dip NEGATIVE (Negative); Urine Cultured Indicated? NO; Urobilinogen 0.2 mg/dL (0-1)
[2021-11-02 11:15] LABS: INFLUENZA A NEGATIVE (NEGATIVE); INFLUENZA B NEGATIVE (NEGATIVE); RESPIRATORY SYNCTIAL VIRUS NEGATIVE (Negative); SARS-CoV-2 Xpert Express NEGATIVE (NEGATIVE)
[2021-11-02 11:53] LABS: Dipstick done @ ? MAIN LAB
[2021-11-02] MEDS ORDERED: MAALOX ES 30 ML UNIT DOSE PO PRN (11:55)
[2021-11-02] MEDS ORDERED: Zofran 4 MG/2 ML VIAL IV PRN (11:55)
[2021-11-02] MEDS ORDERED: MILK OF MAGNESIA 30 ML PO PRN (11:55)
[2021-11-02] MEDS ORDERED: Senokot-S Tablet PO PRN (11:55)
[2021-11-02] MEDS ORDERED: TYLENOL 325 MG PO PRN (11:55)
--- NOTE | 2021-11-02 14:33 | XRAY ---
Indication: Weakness, headache, and nausea. Sagittal, coronal, and axial MRI brain performed using pre-and post T1, T2, FLAIR, diffusion, and ADC sequences. 15 cc Dotarem contrast used. Comparison: None Ventriculosulcal pattern appears symmetric. No acute intracranial hemorrhage, abnormal extra-axial fluid collection, or mass effect. Diffusion images are negative for restricted signal. Following gadolinium, there is no abnormal enhancing intra or extra-axial mass. Fourth ventricle is midline without hydrocephalus. 7/8 cranial nerve complex bilaterally symmetric. Normal flow void signal within the major intracerebral circulation. Normal-appearing craniocervical junction and sella turcica. Paranasal sinuses are clear. Impression: Normal MRI brain with contrast exam.
[2021-11-02] MEDS ORDERED: HUMALOG SQ PRN (16:59)
[2021-11-02] MEDS ORDERED: NON-FORMULARY ITEM (Dulaglutide [Trulicity] 3 MG/0.5 ML Pen.Injctr) IM SCH (17:30)
[2021-11-02] MEDS ORDERED: MEDICATION INTERVENTION MC SCH (17:45)
[2021-11-03 05:19] LABS: Risk Ratio 5.1
[2021-11-03 08:08] VITALS: BP 138/91; PULSE 67; O2SAT 95
[2021-11-03] MEDS ORDERED: hydroDIURIL 25 MG PO SCH (10:00)
[2021-11-03] MEDS ORDERED: Protonix 40MG Tablet PO SCH (10:00)
[2021-11-03] MEDS ORDERED: NON-FORMULARY ITEM (Omeprazole [Omeprazole] 40 MG Capsule.Dr) PO SCH (10:00)
[2021-11-03] MEDS ORDERED: Toprol Xl 50 MG PO SCH (10:00)
[2021-11-03] MEDS ORDERED: NON-FORMULARY ITEM (Lisinopril [Zestril] 30 MG Tablet) PO SCH (10:00)
[2021-11-03] MEDS ORDERED: Zestril 5 MG PO SCH (10:00)
[2021-11-03] MEDS ORDERED: ZYLOPRIM 300 MG PO SCH (10:00)
[2021-11-03] MEDS ORDERED: NON-FORMULARY ITEM (Venlafaxine Hcl [Venlafaxine Hcl Er] 150 MG Cap.Er.24h) PO SCH (10:00)
[2021-11-03] MEDS ORDERED: ECOTRIN 81 MG PO SCH (10:00)
[2021-11-03] MEDS ORDERED: Effexor XR 75 MG PO SCH (10:00)
--- NOTE | 2021-11-03 10:22 | XRAY ---
Indication: Dizziness. Normal CTA neck one day earlier. Two-dimensional sonogram and color Doppler imaging of the arteries of the neck performed. Comparison: None Examination of the right carotid circulation demonstrates widely patent common carotid, carotid bulb, internal carotid, and external carotid arteries. PSV of the CCA is 117 cm/s. PSV of the ICA is 104 cm/s. ICA/CCA ratio is 0.9. Normal antegrade vertebral artery flow. Examination of the left carotid circulation also demonstrates widely patent common carotid, carotid bulb, internal carotid, and external carotid arteries. PSV of the CCA is 116 cm/s. PSV of the ICA is 75 cm/s. ICA/CCA ratio is 0.7. Normal antegrade vertebral artery flow. Impression: Widely patent left and right carotid arteries of the neck. Velocity measurements and ratios are also negative for hemodynamically significant flow limiting stenosis. Findings concurrent with normal CTA neck exam 1 day earlier.
[2021-11-04] MEDS ORDERED: Glucophage 500 MG PO SCH (12:00)
== END 2021-11-03 12:28 | disposition home or self-care (01) ==
LOC: ED 08:23 → MED SURG 11:54
PROVIDERS: ADMIT Family Medicine; ATTEND Family Medicine
DX: H81.10 Benign paroxysmal vertigo, unspecified ear (principal); R11.0 Nausea; I10 Essential (primary) hypertension; E11.9 Type 2 diabetes mellitus without complications; Z79.899 Other long term (current) drug therapy
CPT/HCPCS: 0241U; 36000; 36415; 70450; 70496; 70498; 70553; 71045; 80053; 80061; 80307; 81015; 82947; 83721; 83735; 83880; 84484; 85025; 93005; 93041; 93268; 93306; 93880; 94760; 95812; 96374; 96375; 99285; G0378; G0480; J1817; J1885; J2405; A9270-GY

== ENCOUNTER 2021-12-25 08:22 | Emergency (ER) | payer OTHER ==
--- NOTE | 2021-12-25 08:30 | ERPHSYRPT ---
- History of Present Illness Time Seen by Provider: 12/25/21 08:30 Source: patient Exam Limitations: no limitations Physician History: This is an overweight 51-year-old white male patient of nurse practitioner Shemar in [facility] who presents with chronic recurrent low back pain over the last several years. Patient did not recently fall off a ladder or get hit by car or suffer any type of traumatic injury to his back. However, in the last 2 weeks he is having worsening back pain. He has not addressed this with his nurse practitioner. Patient has a history of gastroesophageal reflux disease, hypertension, gout and yys-[id number] diabetes. Patient drove himself to the hospital. Patient cannot take [place] or Vicodin. He has taken tramadol in the past. He has no loss of sensation in his lower extremities. He denies urinary retention or loss of bowel or bladder control. Timing/Duration: worse (Worse in the last 2 weeks), other (Chronic intermittent) Method of Injury: unknown Back Pain Location: lumbar spine Associated Symptoms: lower back pain, No urinary incontinence, No loss of bowel control, No problems urinating, No numbness in legs/feet, No sensory/motor loss Previous symptoms: same symptoms as today, no recent treatment Allergies/Adverse Reactions: codeine Allergy (Intermediate, Verified 12/25/21 08:38) Vomiting diphenhydramine HCl [From Benadryl] Adverse Reaction (Intermediate, Verified 12/25/21 08:38) Home Medications: Omeprazole 40 mg PO DAILY 01/02/15 [History] Metformin HCl 500 mg [Glucophage 500 MG] 1,000 mg PO DAILY 04/14/18 [History] Allopurinol 300 mg [Zyloprim 300 mg] 300 mg PO DAILY 03/24/19 [History] Venlafaxine HCl [Venlafaxine HCl ER] 225 mg PO DAILY 03/24/19 [History] lisinopriL [Zestril] 5 mg PO DAILY 03/24/19 [History] Metoprolol Succinate 50 mg [Toprol Xl 50 MG] 50 mg PO DAILY 11/10/20 [History] Dulaglutide [Trulicity] 3 mg IM WEEKLY 11/02/21 [History] Hx Tetanus, Diphtheria Vaccination/Date Given: Yes Hx Influenza Vaccination/Date Given: No Hx Pneumococcal Vaccination/Date Given: No Travel Risk - International Travel Have you traveled outside of the country in past 3 weeks: No - Coronavirus Screening Are you exhibiting any of the following symptoms?: No Close contact with a COVID-19 positive Pt in past 14-21 Days: No - Vaccine Status Have you recieved a Covid-19 vaccination: No - Review of Systems Constitutional: No Symptoms Eyes: No Symptoms Ears, Nose, & Throat: No Symptoms Respiratory: No Symptoms Cardiac: No Symptoms Abdominal/Gastrointestinal: No Symptoms Genitourinary Symptoms: No Symptoms Musculoskeletal: Back Pain, No Fall, No Injury Skin: No Symptoms Neurological: No Symptoms Psychological: No Symptoms Endocrine: No Symptoms Hematologic/Lymphatic: No Symptoms Immunological/Allergic: No Symptoms All Other Systems: Reviewed and Negative - Past Medical History Pertinent Past Medical History: Yes Neurological History: No Pertinent History ENT History: No Pertinent History Cardiac History: Hypertension, Other Respiratory History: Sleep Apnea Endocrine Medical History: Diabetes Type II Musculoskeletal History: No Pertinent History GI Medical History: GERD History: No Pertinent History Psycho-Social History: Depression Male Reproductive Disorders: No Pertinent History Other Medical History: MITRAL VALVE PROLAPSE which patient states has healed itself - 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 - Past Surgical History Past Surgical History: Yes Neuro Surgical History: No Pertinent History Cardiac: Cardiac Catheterization Respiratory: No Pertinent History Gastrointestinal: No Pertinent History Genitourinary: No Pertinent History Musculoskeletal: Orthopedic Surgery Male Surgical History: No Pertinent History Other Surgical History: R WRIST, SINUS - Social History Smoking Status: Never smoker Exposure to second hand smoke: No Drug Use: none Patient Lives Alone: No - Nursing Vital Signs Nursing Vital Signs: Initial Vital Signs Temperature 97.3 F 12/25/21 08:32 Pulse Rate 86 12/25/21 08:32 Respiratory Rate 16 12/25/21 08:32 Blood Pressure 169/104 12/25/21 08:32 O2 Sat by Pulse Oximetry 98 12/25/21 08:32 Pain Scale Pain Intensity 7 - Physical Exam General Appearance: no apparent distress, alert, anxiety, obese Eye Exam: PERRL/EOMI, eyes nml inspection Ears, Nose, Throat Exam: normal ENT inspection, moist mucous membranes Neck Exam: normal inspection, non-tender, supple, full range of motion Respiratory Exam: normal breath sounds, lungs clear, airway intact, No chest tenderness, No respiratory distress Cardiovascular Exam: regular rate/rhythm, normal heart sounds, normal peripheral pulses Gastrointestinal Exam: soft, normal bowel sounds, No tenderness Rectal Exam: not done Back Exam: normal inspection, normal range of motion, vertebral tenderness (Lumbar level), muscle spasm (Lumbar level), No CVA tenderness Extremity Exam: normal inspection, normal range of motion, pelvis stable Neurologic Exam: alert, oriented x 3, cooperative, 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 There are chronic changes noted Counseled pt/family regarding: diagnosis, need for follow-up, rad results - Departure Departure Disposition: Home Clinical Impression: Acute exacerbation of chronic low back pain Condition: Stable Critical Care Time: No Referrals: NELSON MARTE, [employer] [Primary Care Provider] - Follow up/PCP as directed Additional Instructions: Take your medication as prescribed. Follow-up with your nurse practitioner joy feldman, by phone, to make a follow-up appointment for further evaluation and management. Monitor your blood sugar closely while taking steroids (prednisone) Prescriptions: Prednisone 10 mg [Deltasone 10 mg] 10 mg PO TID #12 tablet Orphenadrine Citrate 100 mg [Norflex 100 MG Tablet] 100 mg PO BID #10 tab Tramadol HCl 50 mg [Ultram 50 mg] 50 mg PO TID PRN #15 tablet PRN Reason: Moderate To Severe Pain
--- NOTE | 2021-12-25 09:42 | XRAY ---
Indication: Low back pain. No known injury. Comparison: None 3 view lumbar spine demonstrates 5 lumbar segments in normal alignment with minimal/mild multilevel thoracolumbar degenerative changes greatest at L4-L5. 7 mm right renal calculus. No other bony, articular, or soft tissue abnormalities.
[2021-12-25 09:52] VITALS: BP 161/91; PULSE 80; O2SAT 97
== END 2021-12-25 09:50 | disposition home or self-care (01) ==
LOC: ED 08:22
DX: G89.29 Other chronic pain (principal); M54.50 Low back pain, unspecified; I10 Essential (primary) hypertension; E11.9 Type 2 diabetes mellitus without complications; Z79.84 Long term (current) use of oral hypoglycemic drugs; Z79.891 Long term (current) use of opiate analgesic; Z79.52 Long term (current) use of systemic steroids; Z79.899 Other long term (current) drug therapy; Z28.310 Unvaccinated for COVID-19
CPT/HCPCS: 72100; 99283

== ENCOUNTER 2024-03-14 13:53 | Emergency (ER) | payer OTHER ==
[2024-03-14] MEDS ORDERED: MORPHINE SULFATE 4 MG INJ ONE (14:09)
[2024-03-14 14:12] VITALS: RESP 18; TEMP 97.6; O2SAT 98
[2024-03-14] MEDS: MORPHINE SULFATE 4 MG INJ IM ONE (14:14)
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
[2024-03-14 15:21] VITALS: BP 127/87; PULSE 88
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
== END 2024-03-14 15:45 | disposition home or self-care (01) ==
LOC: ED 13:53
DX: S82.842A Displaced bimalleolar fracture of left lower leg, initial encounter for closed fracture (principal); V28.49XA Other motorcycle driver injured in noncollision transport accident in traffic accident, initial encounter; I10 Essential (primary) hypertension; E11.9 Type 2 diabetes mellitus without complications; E78.5 Hyperlipidemia, unspecified; Z79.84 Long term (current) use of oral hypoglycemic drugs; Z79.85 Long-term (current) use of injectable non-insulin antidiabetic drugs; Z79.891 Long term (current) use of opiate analgesic; Z79.899 Other long term (current) drug therapy
CPT/HCPCS: 29515; 73590; 73610; 73630; 96372; 99283; J2270

== ENCOUNTER 2024-03-19 11:27 | Day surgery (SDC) | payer OTHER ==
[2024-03-19] MEDS ORDERED: Decadron 4 MG ONE (11:44)
[2024-03-19] MEDS ORDERED: TYLENOL EXTRA STRENGTH 500 MG ONE (11:44)
[2024-03-19] MEDS ORDERED: NEURONTIN ONE (11:44)
[2024-03-19] MEDS ORDERED: celeBREX 100 MG ONE (11:44)
[2024-03-19] MEDS ORDERED: CEFAZOLIN 2 GM/100 ML NaCl 2 GM/100 ML IVPB IV ONE (11:44)
[2024-03-19] MEDS ORDERED: Sodium Chloride 0.9% 1000 ML 1,000 ML ONE (11:44)
[2024-03-19] MEDS: Decadron 4 MG PO ONE (11:48)
[2024-03-19] MEDS: TYLENOL EXTRA STRENGTH 500 MG PO ONE (11:48)
[2024-03-19] MEDS: NEURONTIN PO ONE (11:48)
[2024-03-19] MEDS: celeBREX 100 MG PO ONE (11:48)
[2024-03-19] MEDS: CEFAZOLIN 2 GM/100 ML NaCl 2 GM/100 ML IVPB IV SCH (11:49)
[2024-03-19] MEDS: Sodium Chloride 0.9% 1000 ML 1,000 ML IV SCH (11:49)
[2024-03-19 12:07] LABS: Hematocrit 41.9 % (40.1-51.0); Hemoglobin 13.9 g/dL (13.7-17.5); Mean Cell Volume 89.3 fL (79.0-92.2); Mean Corpuscular Hemoglobin 29.6 pg (25.7-32.2); Mean Corpuscular Hgb Concent. 33.2 g/dL (32.3-36.5); Mean Platelet Volume 8.7 fL (9.4-12.4); Platelet Count 291 x10^3/uL (163-337); Red Blood Count 4.69 x10^6/uL (4.63-6.08); Red Cell Distribution Width 13.2 % (11.6-14.4); White Blood Count 6.2 x10^3/uL (4.23-9.07)
[2024-03-19 12:20] LABS: ANION GAP 12.7 MEQ/L (5-15); BILIRUBIN,TOTAL 0.6 mg/dL (0.2-1.3); Calcium 9.3 mg/dL (8.4-10.2); Creatinine 1 0.92 mg/dL (0.66-1.25); EST GLOMERULAR FILTRATION RATE 100.7 ML/MIN; Total Protein 7.1 g/dL (6.3-8.2)
[2024-03-19] MEDS ORDERED: Marcaine 0.5%/Epinephrine 10 ML ONE (15:06)
[2024-03-19] MEDS ORDERED: SUBLIMAZE 100 MCG/2 ML ONE ×2 (15:06→17:01)
[2024-03-19] MEDS ORDERED: DIPRIVAN 200 MG/20 ML IV ONE (15:06)
[2024-03-19] MEDS ORDERED: Versed 2 MG/2 ML Injection ONE (15:06)
[2024-03-19] MEDS ORDERED: EXPAREL 133 MG/10 ML VIAL IJ ONE (15:10)
[2024-03-19] MEDS ORDERED: Xylocaine-Mpf 2% 5 Ml Vial ONE (15:11)
[2024-03-19] MEDS ORDERED: Lactated Ringers 1,000 ML IV ONE (15:28)
[2024-03-19] MEDS ORDERED: ROCURONIUM BROMIDE IV ONE (17:01)
[2024-03-19] MEDS ORDERED: BRIDION 200MG/2ML IV ONE (17:33)
[2024-03-19] MEDS ORDERED: Decadron 4 MG INJ ONE (17:33)
[2024-03-19] MEDS ORDERED: Zofran 4 MG/2 ML VIAL ONE (17:33)
[2024-03-19] MEDS ORDERED: TORAdol 30 mg Injection ONE (17:33)
[2024-03-19 19:12] VITALS: RESP 16
[2024-03-19 19:28] VITALS: TEMP 96.4; O2SAT 95
[2024-03-19 19:32] VITALS: BP 135/91; PULSE 84
--- NOTE | 2024-03-20 08:47 | XRAY ---
Indication: Left ankle ORIF. Intraoperative fluoroscopy provided for 2 minute 1 seconds. 26 digital spot images submitted for interpretation demonstrates lateral fixation plate and 9 transverse screws fixating lateral malleolus fracture in good apposition/alignment. Correlate with intraoperative findings/report.
--- NOTE | 2024-03-20 10:15 | OP ---
SURGERY DATE/TIME: 03/19/2024 PREOPERATIVE DIAGNOSES: 1) Bimalleolar fracture, left ankle. 2) Syndesmotic disruption. 3) Left ankle pain. 4) Diabetes mellitus, uncontrolled. POSTOPERATIVE DIAGNOSES: 1) Bimalleolar fracture, left ankle. 2) Syndesmotic disruption. 3) Left ankle pain. 4) Diabetes mellitus, uncontrolled. PROCEDURE: 1) Open reduction internal fixation left ankle fracture bimalleolar. 2) Repair of acute syndesmotic disruption left ankle. SURGEON: Surya Garcia DPM ANESTHESIA: General, plus a popliteal and saphenous block preoperatively. HEMOSTASIS: A thigh tourniquet set to 300 mmHg for a total of 34 total tourniquet minutes. ESTIMATED BLOOD LOSS: Approximately 5 mL. MATERIALS: A 2-0 Vicryl, 3-0 nylon, ALPS MDX plate from [employer], 6-hole anatomic plate with a combination of locking and non-locking screws with two 3.5 x 54 mm screws for syndesmotic fixation. INJECTABLES: See anesthesia report for details. INDICATIONS: The patient is a very pleasant 53-year-old male who presented to my clinic yesterday for a bimalleolar fracture to the left ankle. Patient was assessed at the emergency department and I was called on Saturday evening. In regard to the fracture, it did seem to be an isolated fibular fracture, however, on closer inspection, there was a edvin fracture off the tip of the medial malleolus as well as instability at the level of the syndesmosis or the deltoid. On clinical examination, there was a painful medial tib-fib squeeze at the level of the mid diaphysis of the leg eliciting pain at the syndesmosis. There was also pain with external rotation test and gravity stress demonstrated medial clear space widening. From that standpoint, this was denoted as a supination external rotation injury type 4 and, as a result, I deemed this to be a surgical issue. Patient is a diabetic, however, controlled. Decision was made to proceed with surgical intervention at this time. Patient is understanding of all risks, complications, and benefits of surgical intervention including but not limited to infection, hematoma, seroma, possibility of delayed wound healing, non-wound healing, and possible need for further surgical intervention at a later date. No guarantees were provided as to the outcome of surgical intervention at this time. Plenty of time was allowed for the patient to ask questions which were answered to his apparent satisfaction. At this time, we decided to proceed. DESCRIPTION OF PROCEDURE AND FINDINGS: Patient was brought to the PACU prior to the procedure and provided a popliteal and saphenous block. See anesthesia report for details. Following this, patient was brought in the operating room, placed on the operating room table in the supine position. General anesthesia was administered until patient was adequately sedated. The left lower extremity was prepped and draped in a typical sterile fashion. Prior to this, a well-padded thigh tourniquet was applied. Based on the patient's blood pressure, the tourniquet was set to 300 mmHg. Under fluoroscopic guidance, the fracture site was identified and the tip of the fibula was identified. A linear incision was carried down after inflating the tourniquet, straight bone utilizing a 10 blade, identifying the fracture site very quickly, utilizing a dental pick to clean out the hematoma and into the fracture site. From that standpoint, decision was made. Copious amounts of sterile saline were used to flush the surgical sites . At this time, manuela cortez utilized to hold the reduction in adequate position . was identified as well as [place] line. From that standpoint, fibular plating was utilized. An anatomic plate and a combination of of temporary reduction. Plan was to reduce and adequate subluxation was identified. Following this, stress views were obtained of the ankle demonstrating some gapping at the level of the syndesmosis and the medial clear space was widening. Therefore, the decision was made to proceed with syndesmotic fixation. Syndesmotic fixation was carried out utilizing two 3.5 x 50 cortical screws in an orientation approximately 20 to 30 mm perpendicular to the long axis of the fibula. From that standpoint, stress views were once again obtained demonstrating no gapping at the medial clear space. Following this, copious amounts of sterile saline were utilized to flush the surgical site. At this time, 2-0 Vicryl was utilized to coapt the subcutaneous in just a simple buried-type fashion and then 3-0 nylon was utilized in a horizontal mattress-type fashion to coapt the skin edges in an everted-type fashion. Dressing was applied. The left leg was cleansed and dried. Dressing consisting of Betadine, Adaptic, 4 x 4, Kerlix, ABD, and Liu as well as a posterior splint with sugar tong was applied to the left lower extremity with the foot orthogonal relative to longitudinal axis of the leg. The patient was then reversed from anesthesia and returned to the postoperative anesthesia care unit with vital signs stable and vascular status intact. Patient handled the anesthesia as well as the procedure without significant complications. Postoperative orders as indicated in the patient's discharge chart.
--- NOTE | 2024-03-20 10:16 | XRAY ---
2 minutes and 1 second of fluoroscopy was used in surgery for a left ankle ORIF.
== END 2024-03-19 19:41 | disposition home or self-care (01) ==
LOC: SDC 11:27
PROVIDERS: ATTEND Podiatrist Foot & Ankle Surgery
DX: S82.845A Nondisplaced bimalleolar fracture of left lower leg, initial encounter for closed fracture (principal); S93.432A Sprain of tibiofibular ligament of left ankle, initial encounter; M25.572 Pain in left ankle and joints of left foot; E11.65 Type 2 diabetes mellitus with hyperglycemia
CPT/HCPCS: 27814; 27829; 36415; 73610; 76000; 80053; 83735; 85027; 93005; J0690; J1100; J1885; J2250; J2405; J2704; J3010; A9270-GY